=== PATIENT | male | born 1970 | race Two or more races ===

== ENCOUNTER 2018-03-20 11:13 | Emergency (ER) | payer OTHER ==
[~2018-03-20] VITALS: Ht 180.3 cm; Wt 95.3 kg
--- NOTE | 2018-03-20 11:30 | NUR ---
PT CAME IN WITH C/O HEARING VOICES AND HALLUCINATION. DENIES SI/HI. NOTED CALM AND DIRECTABLE. SEEN BY [employer]UDIT[employer] RITO ATKINSON.
[2018-03-20 12:13] LABS: BASOPHILS % (AUTO) 0.5 % (0.0-2.0); EOSINOPHILS % (AUTO) 2.4 % (0.0-6.0); HEMATOCRIT 40 % (39-51); HEMOGLOBIN 13.7 g/dL (13.5-17.5); LYMPHOCYTES # (AUTO) 2.1 /CMM (0.8-4.8); LYMPHOCYTES % (AUTO) 36.8 % (20.0-44.0); MEAN CORPUSCULAR HEMOGLOBIN 30 PG (26.0-33.0); MEAN CORPUSCULAR HGB CONC 34 g/dl (31.0-36.0); MEAN CORPUSCULAR VOLUME 88 fL (80-96); MONOCYTES # (AUTO) 0.6 /CMM (0.1-1.30); MONOCYTES % (AUTO) 11.1 % (2.0-12.0); NEUTROPHILS # (AUTO) 2.8 /CMM (1.8-8.9); NEUTROPHILS % (AUTO) 49.2 % (43.0-81.0); PLATELET COUNT (AUTO) 250 /CMM (150-450); RDW COEFFICIENT OF VARIATION 11.9 (11.5-15.0); RED BLOOD CELL COUNT(AUTO) 4.61 MIL/uL (4.5-6.0); WHITE BLOOD COUNT (AUTO) 5.6 K/uL (4.3-11.0)
[2018-03-20 12:23] LABS: CALCIUM, SERUM 9.3 mg/dL (8.5-10.1); CARBON DIOXIDE 30 mmol/L (21-32); CHLORIDE 103 mmol/L (98-107); GLUCOSE 95 mg/dL (74-106); SODIUM SERUM 137 mmol/L (136-145); UREA NITROGEN, BLOOD 14 mg/dL (7-18)
[2018-03-20 12:27] LABS: SALICYLATE 2.3 mg/dL (2.8-20.0)
[2018-03-20 12:28] LABS: ACETAMINOPHEN 0 ug/ml (10-30); ALCOHOL, BLOOD < 3 mg/dL (0-0)
--- NOTE | 2018-03-20 14:00 | NUR ---
ROSIBEL COPELAND AT FOR EVAL.
[2018-03-20] MEDS ORDERED: LORAZEPAM 1 MG TABLET ONE (14:06)
--- NOTE | 2018-03-20 14:27 | NUR ---
Patient discharged to home in stable condition. Written and verbal after care instructions given. Patient verbalizes understanding of instruction.
[2018-03-20 14:30] VITALS: BP 138/69
== END 2018-03-20 14:31 | disposition home or self-care (01) ==
LOC: ER 11:14
DX: F23 Brief psychotic disorder (principal); F32.9 Major depressive disorder, single episode, unspecified
CPT/HCPCS: 36415; 80048-TC; 85025-TC; A4606; G0480; Z7610